=== PATIENT | male | born 1950 | race Caucasian/White ===

== ENCOUNTER 2017-12-30 16:12 | Emergency (ER) | payer BC, MEDICARE ==
--- NOTE | 2017-12-30 16:26 | ED ---
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 He passed out in a restaurant hitting his head and R ear on the bench. He was lying on the floor when EMS arrived. He notes LOC,diarrhea and a 0.35 cm laceration with controlled bleeding but denies CP, lightheadedness, fever, chills, N/D, seizures, confusion, and neck pain. He reports a MHx of HTN , HLD, and Colitis but denies a hx of DM, IN, DVT, and CA. - History Of Current Complaint Chief Complaint: EDSyncope Time Seen by Provider: 12/30/17 16:14 Hx Obtained From: Patient, Family/Dredge Or [facility] Hand - Onset/Duration: Sudden Onset Timing: Minutes Context: Witnessed, Loss Of Consciousness Activity At Onset: Other - Standing Associated Head Trauma: Yes Aggravating Factor(s): Nothing Alleviating Factor(s): Nothing Associated Signs And Symptoms: Negative - CP, lightheadedness, fever, chills, N/ D, seizures, confusion, and neck pain, Diarrhea, Other - Positive: LOC - Allergies/Home Medications Allergies/Adverse Reactions: Allergies Allergy/AdvReac Type Severity Reaction Status Date / Time No Known Allergies Allergy Verified 12/30/17 16:34 PMH/Surg Hx/FS Hx/Imm Hx Previously Healthy: No Endocrine/Hematology History: Denies: Hx Diabetes Cardiovascular History: Reports: Hx Hypercholesterolemia, Hx Hypertension Denies: Hx Myocardial Infarction GI History: Reports: Other GI Disorders - Colitis Denies: Hx Diverticulosis - Cancer History Hx Hematologic Symptoms: No Hx Chemotherapy: No Hx Radiation Therapy: No Hx Palliative Cancer Treatment: No - Surgical History Other Surgical History: None reported Infectious Disease History: No Infectious Disease History: Denies: Traveled Outside the [place] in Last 30 Days - Family History Known Family History: Negative: Respiratory Disease, Blood Disorder - Social History Occupation: Employed Full-time Lives: With Family Alcohol Use: Occasionally Substance Use Type: Reports: None Hx Tobacco Use: No Review of Systems Constitutional: Negative - Confusion Negative: Fever, Chills ENT: Negative - Neck pain Positive: Diarrhea. Negative: Vomiting, Nausea Positive: Other - Positive- 0.25 cm laceration on the R ear with controlled bleeding Neurological: Negative - Seizures Positive: Syncope All Other Systems Reviewed And Are Negative: Yes Physical Exam - Summary Physical Exam Summary: GENERAL: Patient is a well developed and nourished M who is lying comfortable in the stretcher. Patient is not in any acute respiratory distress. HEAD AND FACE: Normocephalic EYES: PERRLA, EOMI x 2. EARS: Hearing grossly intact;Tiny abrasion with controlled bleeding seen to the R ear above the tragus MOUTH: Oropharynx within normal limits. NECK: Supple, trachea is midline, no adenopathy, no JVD, no carotid bruit. CHEST: Symmetric, no tenderness at palpation LUNGS: Clear to auscultation bilaterally. No wheezing or crackles. CVS: Regular rate and rhythm, S1 and S2 present, no murmurs or gallops appreciated. ABDOMEN: Soft, non-tender. Bowel sounds are normal. No abdominal abnormal pulsations. EXTREMITIES: Full ROM in all major joints, no edema, no cyanosis or clubbing. NEURO: Alert and oriented x 3. No acute neurological deficits. Speech is normal and follows commands. SKIN: Dry and warm Triage Information Reviewed: Yes Vital Signs On Initial Exam: Initial Vitals Temp Pulse Resp BP Pulse Ox 98.1 F 74 17 139/87 100 12/30/17 16:16 12/30/17 16:16 12/30/17 16:16 12/30/17 16:16 12/30/17 16:16 Vital Signs Reviewed: Yes Diagnostics - Vital Signs Vital Signs Temp Pulse Resp BP Pulse Ox 12/30/17 16:16 98.1 F 74 17 139/87 100 - Laboratory Result Diagrams: 12/30/17 16:49 12/30/17 16:49 Lab Statement: Any lab studies that have been ordered have been reviewed, and results considered in the medical decision making process. - Radiology CXR Radiology Interpretation Completed By: Radiologist - IMPRESSION: 1. No radiographic evidence for acute cardiopulmonary abnormality on this portable chest x-ray. 2. Questionable free air beneath the right hemidiaphragm. 3. Dilated loops of small bowel with possible wall thickening identified at the left of midline upper abdomen. The ED physician has reviewed this radiology report. - CT Chest/Abd /Pel CT CT Interpretation Completed By: Radiologist - IMPRESSION: 1. T6 vertebral body lesion of uncertain significance. Consider further imaging with MR if no prior studies are available to confirm long-term stability. 2. No acute findings in the chest. Specifically, no pulmonary embolism. The ED physician has reviewed this radiatiology report. 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 He passed out in a restaurant hitting his head and R ear on the bench. He was lying on the floor when EMS arrived. He notes LOC, diarrhea and a 0.35 cm laceration with controlled bleeding but denies CP, lightheadedness, fever, chills, N/D, seizures, confusion, and neck pain. He reports a MHx of HTN, HLD, and Colitis but denies a hx of DM, IN, DVT, and CA. A physical exam reveals a small laceration with controlled bleeding on the R ear near the tragus. A CXR reveals free air beneath the right hemidiaphragm and dilated loops of small bowel with possible wall thickening in the L midline upper abdomen. A Chest/Abd/ Pel CT and EKG are both unremarkable. In the ED course, pt was given Iohexol and N.s 0.9% which improved the symptoms. The pt wanted to leave AMA but agreed to wait for the radiology results. I diagnosed the pt with syncope and anemia. Allergies noted. 19:00- The pt was signed out to Dr Ty Sterling MD. He is awaiting the Chest/Abd/Pel CT results. - Diagnoses Provider Diagnoses: Syncope, Anemia Discharge - Sign-Out/Discharge Documenting (check all that apply): Sign-Out Patient Signing out patient TO: Ty Sterling - Discharge Plan Referrals: [facility] [Outside] - Attestation Statements Document Initiated by Scribe: Yes Documenting Scribe: Magdalene Regalado Provider For Whom Scribe is Documenting (Include Credential): Dr. Becki Bella. Scribe Attestation: Magdalene Philip , scribed for Dr. Becki Simental on 12/30/17 at 1939.
[2017-12-30 16:57] LABS: ABS Basophils 0 10^3/ul (0-0.2); ABS Eosinophils 0 10^3/ul (0-0.6); ABS Lymphocytes 0.7 10^3/ul (1.0-4.8); ABS Monocytes 0.6 10^3/ul (0-0.8); ABS Neutrophils 7.3 10^3/ul (1.5-7.7); ABS Nucleated RBC 0 10^3/ul; Eosinophil % 0 % (0-6); Hematocrit 28 % (42-52); Hemoglobin 9.5 g/dl (14.0-18.0); Lymphocyte % 8.4 % (25-47); Mean Corpuscular HGB Conc 34 g/dl (31-36); Mean Corpuscular Hemoglobin 35 pg (27-31); Mean Corpuscular Volume 104 fL (80-94); Mean Platelet Volume 6.6 um3 (7.4-10.4); Nucleated Red Blood Cells % 0; Platelet Count 186 10^3/ul (150-450); Red Blood Count 2.69 10^6/ul (4.00-5.40); Red Cell Distribution Width 13 % (10.5-15); White Blood Count 8.6 10^3/ul (3.5-10.8)
--- NOTE | 2017-12-30 17:03 | RAD ---
INDICATION: Syncope COMPARISON: None. TECHNIQUE: Single AP portable view of the chest was obtained. FINDINGS: Image quality is compromised due to the relative inferiority of a portable chest x-ray. The heart and mediastinum exhibit normal size and contour. The lungs are grossly clear. There is no evidence of a large pleural effusion. There appears to be air beneath the right hemidiaphragm that is questionably located within bowel. At the upper midline abdomen there are air-filled loops of bowel measuring up to 3.3 cm in diameter that appear to exhibit mild circumferential wall thickening. Visualized bones are normal for the patient's age. IMPRESSION: 1. No radiographic evidence for acute cardiopulmonary abnormality on this portable chest x-ray. 2. Questionable free air beneath the right hemidiaphragm. 3. Dilated loops of small bowel with possible wall thickening identified at the left of midline upper abdomen.
[2017-12-30 17:07] LABS: INR 0.81 (0.77-1.02)
[2017-12-30 17:17] LABS: EGFR Non-African American 67.1 (>60)
[2017-12-30] MEDS ORDERED: NS 0.9% 1000 ML* 1,000 ML IV ONE (17:28)
[2017-12-30] MEDS ORDERED: Iohexol 350* (CONTRAST) 500 ML MDV IV ONE (17:34)
--- NOTE | 2017-12-30 19:19 | RAD ---
EXAM: CT Angiography Chest With Intravenous Contrast CLINICAL HISTORY: 67 years old, male; Signs and symptoms; Other: Chest: Eval for pe per md; A/p: Questionable free air seen on xray; Additional info: Eval for pe; Questionable free air seen on x ray TECHNIQUE: Axial computed tomographic angiography images of the chest with intravenous contrast using pulmonary embolism protocol. All CT scans at this facility use at least one of these dose optimization techniques: automated exposure control; mA and/or kV adjustment per patient size (includes targeted exams where dose is matched to clinical indication); or iterative reconstruction. MIP reconstructed images were created and reviewed. Coronal and sagittal reformatted images were created and reviewed. CONTRAST: 97 mL of [id number] administered intravenously. COMPARISON: No relevant prior studies available. FINDINGS: Pulmonary arteries: Unremarkable. No pulmonary embolism. Aorta: Atherosclerotic calcification. Lungs: Unremarkable. No mass. No consolidation. Pleural space: Unremarkable. No significant effusion. No pneumothorax. Heart: Unremarkable. No cardiomegaly. No significant pericardial effusion. No evidence of RV dysfunction. Bones/joints: Small low-attenuation of the T6 vertebral body of uncertain significance. No acute fracture. No dislocation. Soft tissues: Unremarkable. Lymph nodes: Unremarkable. No enlarged lymph nodes. IMPRESSION: 1. T6 vertebral body lesion of uncertain significance. Consider further imaging with MR if no prior studies are available to confirm long-term stability. 2. No acute findings in the chest. Specifically, no pulmonary embolism. EXAM: CT Abdomen and Pelvis With Intravenous Contrast CLINICAL HISTORY: 67 years old, male; Signs and symptoms; Other: Chest: Eval for pe per md; A/p: Questionable free air seen on xray; Additional info: Eval for pe; Questionable free air seen on x ray TECHNIQUE: Axial computed tomography images of the abdomen and pelvis with intravenous contrast. All CT scans at this facility use at least one of these dose optimization techniques: automated exposure control; mA and/or kV adjustment per patient size (includes targeted exams where dose is matched to clinical indication); or iterative reconstruction. MIP reconstructed images were created and reviewed. Coronal and sagittal reformatted images were created and reviewed. CONTRAST: 97 mL of [id number] administered intravenously. 97 mL of [id number] administered intravenously. COMPARISON: No relevant prior studies available. FINDINGS: Lung bases: Unremarkable. No mass. No consolidation. ABDOMEN: Liver: Unremarkable. No mass. Gallbladder and bile ducts: Unremarkable. No calcified stones. No ductal dilation. Pancreas: Unremarkable. No mass. No ductal dilation. Spleen: Unremarkable. No splenomegaly. Adrenals: Unremarkable. No mass. Kidneys and ureters: Bilateral perinephric fat stranding, a nonspecific finding which can be seen with pyelonephritis or recently passed stone. Stomach and bowel: Colonic diverticula with mild mesenteric fat stranding adjacent to the mid descending colon. Multiple loops of prominent small bowel in the anterior abdomen measuring approximately 28 mm in greatest dimension. Distal small bowel is decompressed. No obstruction. No mucosal thickening. PELVIS: Appendix: No findings to suggest acute appendicitis. Bladder: Unremarkable. No mass. Reproductive: Unremarkable as visualized. ABDOMEN and PELVIS: Intraperitoneal space: Unremarkable. No free air. No significant fluid collection. Bones/joints: Degenerative changes of the lumbar spine. No acute fracture. No dislocation. Soft tissues: Unremarkable. Vasculature: Atherosclerotic calcification. No abdominal aortic aneurysm. Lymph nodes: Unremarkable. No enlarged lymph nodes. IMPRESSION: 1. Possible early or incomplete small bowel obstruction. Recommend followup radiographs to confirm. 2. Left-sided diverticulitis without perforation or abscess.
--- NOTE | 2017-12-30 19:58 | RAD ---
EXAM: CT Head Without Intravenous Contrast CLINICAL HISTORY: 67 years old, male; Signs and symptoms; Syncope and collapse; Additional info: Syncope with fall TECHNIQUE: Axial computed tomography images of the head/brain without intravenous contrast. All CT scans at this facility use at least one of these dose optimization techniques: automated exposure control; mA and/or kV adjustment per patient size (includes targeted exams where dose is matched to clinical indication); or iterative reconstruction. Coronal and sagittal reformatted images were created and reviewed. COMPARISON: No relevant prior studies available. FINDINGS: Brain: Unremarkable. No hemorrhage. No significant white matter disease. No edema. Ventricles: Unremarkable. No ventriculomegaly. Bones/joints: Unremarkable. No acute fracture. Soft tissues: Extracranial soft tissue swelling overlying the right parietal region. Vasculature: Residual vascular contrast is present from the chest and abdomen CT performed earlier. Sinuses: Unremarkable as visualized. No acute sinusitis. Mastoid air cells: Unremarkable as visualized. No mastoid effusion. IMPRESSION: 1. No acute intracranial abnormality.
--- NOTE | 2017-12-30 20:16 | ED ---
Progress - Progress Note Progress Note: Patient was signed out to Dr. Ty Sterling via Dr. Bella, pending disposition on 12/30/2017 at 1900. Re-Evaluation - Re-Evaluation First Eval Re-Evaluation Time: 20:10 Comment: Discussed with patient. Course/Dx - Course Course Of Treatment: A 67 y/o male HARRY presents to ED c/o syncope. CTA Chest/ Abdomen/Pelvis as per radiology did reveal a bowel obstruction and diverticulitis. Patient does not have any symptoms or signs of bowel obstruction. Patient does have chronic diarrhea and chronic colitis which is his baseline. Regarding syncope, patient was advised by Dr. Sterlnig and Dr. Bella to stay in hospital. However, patient refused to stay. Patient advised that he needs to stay to make sure of malignant arrhythmia for syncope. Patient understands and will still sign out AMA. It was explained to the patient the risks of signing out AMA such as arrhythmia, heart attack, permanent disability and . Patient understands and will sign out AMA. Patient will be signed out AMA with a diagnosis of syncope. Patient is to follow up with PCP tomorrow. Patient is agreeable with this plan. - Diagnoses Provider Diagnoses: Syncope Discharge - Sign-Out/Discharge Documenting (check all that apply): Patient Departure - DISCHARGE AMA - Discharge Plan Condition: Stable Disposition: AGAINST MEDICAL ADVICE Patient Education Materials: Syncope (ED), Bowel Obstruction (ED) Referrals: [facility] [Outside] - 1 Day Additional Instructions: FOLLOW UP WITH PRIMARY CARE OR [facility] TOMORROW. RETURN TO ED FOR ANY NEW OR WORSENING SYMPTOMS. - Attestation Statements Document Initiated by Scribe: Yes Documenting Scribe: Butch Meza Provider For Whom Aileenibe is Documenting (Include Credential): Ty Sterling Scribe Attestation: Butch Philip, markosed for Ty Sterling on 12/30/17 at 2016.
[2017-12-30 20:38] VITALS: BP 142/85
== END 2017-12-30 20:37 | disposition left against medical advice (07) ==
LOC: ED 16:12
DX: R55 Syncope and collapse (principal); D64.9 Anemia, unspecified; S01.311A Laceration without foreign body of right ear, initial encounter; W18.09XA Striking against other object with subsequent fall, initial encounter; Y93.9 Activity, unspecified; Y92.511 Restaurant or cafe as the place of occurrence of the external cause; R19.7 Diarrhea, unspecified
CPT/HCPCS: 36415; 70450; 71045; 71275; 74177; 80053; 82272; 83605; 83735; 83880; 84484; 85025; 85379; 85610; 85730; 93005; 96360; 96361; 99283; Q9967

== ENCOUNTER 2022-10-05 21:32 | Inpatient (IN) ==
[2022-10-05] MEDS ORDERED: Morphine 4 MG/ML VIAL (1 ml) IV ONE (21:49)
[2022-10-05 22:04] LABS: Hematocrit 36.5 % (38-53); Hemoglobin 12.4 g/dL (13.2-16.3); Mean Corpuscular Hemoglobin 37.5 pg (27-33); Mean Corpuscular Volume 110.5 fL (80-97); Platelet Count 154 10^3/uL (150-450); Red Blood Count 3.31 10^6/uL (4.06-5.63); Red Cell Distribution Width 14.1 % (12-17); White Blood Count 11.1 10^3/uL (3.6-10.2)
[2022-10-05 22:17] LABS: Albumin 4.2 g/dL (3.2-5.2); Albumin/Globulin Ratio 1.3 (1-3); Calcium 9.2 mg/dL (8.6-10.3); Creatinine, Serum 1.69 mg/dL (0.67-1.17); Globulin 3.3 g/dL (2-4); Potassium 4.1 mmol/L (3.5-5.0); Total Bilirubin 0.6 mg/dL (0.2-1.0); Total Protein 7.5 g/dL (6.4-8.9); eGFR CKD-EPI 42.3 (>60)
[2022-10-05] MEDS ORDERED: Ondansetron 4 mg VIAL 2 MG/ML 2 ml VIAL IV ONE (22:17)
[2022-10-05 22:38] LABS: ABS Monocytes 0.8 10^3/uL (0.0-1.1); ABS Neutrophils 9.3 10^3/uL (1.5-7.6); ABS Nucleated RBC 0.01 10^3/ul; Eosinophil % 0.1 %; Lymphocyte % 8.6 %; Nucleated Red Blood Cells % 0.1 /100 WBC (0.0-0.4)
[2022-10-05] MEDS ORDERED: Lactated Ringers 1000 ml BAG 1,000 ML IV ONE (22:52)
[2022-10-05] MEDS ORDERED: Senna TAB 8.6 mg TAB PO PRN (23:55)
[2022-10-05] MEDS ORDERED: Polyethylene Glycol 3350 17 GM PACKET PO PRN (23:55)
[2022-10-06] MEDS ORDERED: Morphine 2 MG/ML SYRINGE IV PRN (00:05)
[2022-10-06] MEDS: Enoxaparin 40 MG/0.4 ML SYR SUBCUT SCH ×2 (00:53→21:40)
[2022-10-06] MEDS ORDERED: Lactated Ringers 1000 ml BAG 1,000 ML IV SCH (01:00)
[2022-10-06 01:09] LABS: INR 0.96 (0.88-1.18)
[2022-10-06] MEDS: Lactated Ringers 1000 ml BAG 1,000 ML IV SCH ×2 (04:41→13:14)
[2022-10-06 07:30] LABS: ABS Lymphocytes 0.7 10^3/uL (1.0-4.8); ABS Monocytes 1.1 10^3/uL (0.0-1.1); ABS Neutrophils 8.1 10^3/uL (1.5-7.6); Hematocrit 33.6 % (38-53); Hemoglobin 11.5 g/dL (13.2-16.3); Lymphocyte % 7.5 %; Mean Corpuscular Hemoglobin 36.9 pg (27-33); Mean Corpuscular Hgb Conc 34.2 g/dL (31-36); Mean Corpuscular Volume 107.7 fL (80-97); Mean Platelet Volume 6.6 fL (7.5-11.2); Platelet Count 230 10^3/uL (150-450); Red Blood Count 3.12 10^6/uL (4.06-5.63); Red Cell Distribution Width 13.9 % (12-17)
[2022-10-06 07:40] LABS: Albumin/Globulin Ratio 1.3 (1-3); Creatinine, Serum 1.64 mg/dL (0.67-1.17); Globulin 3.2 g/dL (2-4); Magnesium 1.5 mg/dL (1.9-2.7); Potassium 4.4 mmol/L (3.5-5.0); Total Bilirubin 0.8 mg/dL (0.2-1.0); Total Protein 7.2 g/dL (6.4-8.9); eGFR CKD-EPI 43.9 (>60)
[2022-10-06] MEDS: Thiamine 100 MG/ML 2 ml VIAL 100 MG in NS 0.9% 50 ML 50 ML IV SCH (08:41)
[2022-10-06] MEDS ORDERED: Magnesium Sulfate 2 gm BAG 2 GM/50 ML BAG IVPB ONE (13:21)
[2022-10-06 14:10] LABS: Folate 4.43 ng/mL (5.90-24.80)
[2022-10-06] MEDS ORDERED: ceFAZolin 2 GM in NS PREMIX 2 GM/100 ML BAG IVPB ONE (14:42)
[2022-10-06] MEDS ORDERED: Naloxone 0.4 mg VIAL 0.4 mg/ml 1 ml VIAL IV PRN (14:53)
[2022-10-06] MEDS ORDERED: Ondansetron 4 mg VIAL 2 MG/ML 2 ml VIAL IV PRN (14:53)
[2022-10-06] MEDS ORDERED: HYDROmorphone 1 MG/1 ML SYRINGE IV PRN (14:53)
[2022-10-06] MEDS ORDERED: fentaNYL 100 mcg/2 ml 50 MCG/ML VIAL IV PRN (14:53)
[2022-10-06] MEDS ORDERED: Acetaminophen IV 1 GM/100ML 1,000 MG/100 ML BAG IV ONE (14:53)
[2022-10-06] MEDS ORDERED: fentaNYL 100 mcg/2 ml 50 MCG/ML VIAL ONE (15:29)
[2022-10-06] MEDS ORDERED: Midazolam 2 mg/2 ml VIAL 1 mg/ml 2 ml VIAL (2 mg) ONE (15:29)
[2022-10-06] MEDS ORDERED: Bupivacaine 0.25% EPI 200,000 30 ML SDV ONE (17:14)
[2022-10-06] MEDS: Ondansetron 4 mg VIAL 2 MG/ML 2 ml VIAL IV PRN (21:41)
[2022-10-06] MEDS ORDERED: Lactated Ringers 1000 ml BAG 1,000 ML IV ONE (22:22)
[2022-10-06] MEDS ORDERED: Lorazepam PYXIS KEY PRN (22:23)
[2022-10-07] MEDS: LORazepam 2 mg VIAL 1 ml IV PUSH PRN ×5 (00:02→17:22)
[2022-10-07] MEDS: ceFAZolin 1 GM X 3 DOSES POST-OP Q8H (AddVan) IVPB SCH ×3 (02:42→18:15)
[2022-10-07] MEDS: Ondansetron 4 mg VIAL 2 MG/ML 2 ml VIAL IV PRN (06:01)
[2022-10-07 06:48] LABS: ABS Lymphocytes 0.7 10^3/uL (1.0-4.8); ABS Monocytes 0.6 10^3/uL (0.0-1.1); ABS Neutrophils 5.1 10^3/uL (1.5-7.6); Eosinophil % 0.3 %; Hematocrit 24.5 % (38-53); Hemoglobin 8.6 g/dL (13.2-16.3); Lymphocyte % 11.3 %; Mean Corpuscular Hemoglobin 38.1 pg (27-33); Mean Corpuscular Hgb Conc 35.2 g/dL (31-36); Mean Corpuscular Volume 108.3 fL (80-97); Platelet Count 150 10^3/uL (150-450); Red Blood Count 2.26 10^6/uL (4.06-5.63); Red Cell Distribution Width 13.8 % (12-17); White Blood Count 6.5 10^3/uL (3.6-10.2)
[2022-10-07 07:02] LABS: Calcium 8.2 mg/dL (8.6-10.3); Creatinine, Serum 1.7 mg/dL (0.67-1.17); Potassium 4.2 mmol/L (3.5-5.0)
[2022-10-07] MEDS ORDERED: Cyanocobalamin INJ 1,000 MCG/ML VIAL 1 ML VIAL IM ONE (07:57)
[2022-10-07] MEDS: Thiamine 100 MG/ML 2 ml VIAL 100 MG in NS 0.9% 50 ML 50 ML IV SCH (08:53)
[2022-10-07] MEDS: Enoxaparin 40 MG/0.4 ML SYR SUBCUT SCH (21:35)
[2022-10-08] MEDS ORDERED: hydrALAZINE 20 mg/ml 1 ML Vial IV IV SLOW PU ONE (01:25)
[2022-10-08 06:18] LABS: ABS Lymphocytes 0.8 10^3/uL (1.0-4.8); ABS Monocytes 0.8 10^3/uL (0.0-1.1); ABS Neutrophils 6.8 10^3/uL (1.5-7.6); Hematocrit 23.8 % (38-53); Hemoglobin 8.4 g/dL (13.2-16.3); Lymphocyte % 9.3 %; Mean Corpuscular Hemoglobin 37.6 pg (27-33); Mean Corpuscular Hgb Conc 35.3 g/dL (31-36); Mean Corpuscular Volume 106.4 fL (80-97); Mean Platelet Volume 7.5 fL (7.5-11.2); Platelet Count 143 10^3/uL (150-450); Red Blood Count 2.24 10^6/uL (4.06-5.63); Red Cell Distribution Width 13.4 % (12-17); White Blood Count 8.3 10^3/uL (3.6-10.2)
[2022-10-08 06:35] LABS: Calcium 8.7 mg/dL (8.6-10.3); Creatinine, Serum 1.78 mg/dL (0.67-1.17); Potassium 3.8 mmol/L (3.5-5.0); eGFR CKD-EPI 39.8 (>60)
[2022-10-08] MEDS ORDERED: Magnesium Hydroxide LIQ 30 ML UDC PO PRN (09:30)
[2022-10-08] MEDS: Thiamine 100 MG/ML 2 ml VIAL 100 MG in NS 0.9% 50 ML 50 ML IV SCH (12:23)
[2022-10-08] MEDS: Lactated Ringers 1000 ml BAG 1,000 ML IV SCH ×2 (16:10→22:43)
[2022-10-08] MEDS: Enoxaparin 40 MG/0.4 ML SYR SUBCUT SCH (20:40)
[2022-10-09] MEDS: Lactated Ringers 1000 ml BAG 1,000 ML IV SCH (05:45)
[2022-10-09 05:56] LABS: ABS Lymphocytes 0.7 10^3/uL (1.0-4.8); ABS Monocytes 1.1 10^3/uL (0.0-1.1); ABS Neutrophils 6.9 10^3/uL (1.5-7.6); Eosinophil % 0.3 %; Hemoglobin 7.5 g/dL (13.2-16.3); Lymphocyte % 8.1 %; Mean Corpuscular Hemoglobin 38.4 pg (27-33); Mean Corpuscular Hgb Conc 35.6 g/dL (31-36); Mean Corpuscular Volume 107.9 fL (80-97); Mean Platelet Volume 6.9 fL (7.5-11.2); Platelet Count 163 10^3/uL (150-450); Red Blood Count 1.95 10^6/uL (4.06-5.63); Red Cell Distribution Width 13.7 % (12-17); White Blood Count 8.7 10^3/uL (3.6-10.2)
[2022-10-09 06:33] LABS: Calcium 8.1 mg/dL (8.6-10.3); Creatinine, Serum 1.63 mg/dL (0.67-1.17); Magnesium 1.7 mg/dL (1.9-2.7); Potassium 3.1 mmol/L (3.5-5.0); eGFR CKD-EPI 44.2 (>60)
[2022-10-09] MEDS ORDERED: Magnesium Sulf 4 GM/100 ML IV 4,000 MG/100 ML BAG IVPB ONE (07:23)
[2022-10-09] MEDS: Potassium Chlor 20 meq TAB.ER PO SCH ×2 (09:06→11:32)
[2022-10-09 09:10] LABS: Corrected Retic Count 1.1 % (0.5-1.5); Hematocrit for Retic CNT 20.7 % (38-53); Immature Retic Fraction 0.36; RBC Retic Count 1.93 10^6/ul (4.06-5.63)
[2022-10-09] MEDS ORDERED: Iodixanol (CONTRAST) 320 MG/ML 100 ML SDV IV ONE (14:13)
[2022-10-09] MEDS ORDERED: fentaNYL 100 mcg/2 ml 50 MCG/ML VIAL ONE (15:34)
[2022-10-09] MEDS ORDERED: Midazolam 10 mg/10 ml VIAL 1 mg/ml 10 ml VIAL (10 mg) ONE (15:34)
[2022-10-09] MEDS: Thiamine 100 MG/ML 2 ml VIAL 100 MG in NS 0.9% 50 ML 50 ML IV SCH ×2 (15:59→18:23)
[2022-10-09] MEDS ORDERED: Magnesium Sulfate IV 3 GM in NS 0.9% 100 ml BAG 100 ML IVPB ONE (18:08)
[2022-10-09 18:55] LABS: Hematocrit 20.7 % (38-53); Hemoglobin 7.4 g/dL (13.2-16.3)
[2022-10-09 19:22] LABS: % Iron Saturation 13 % (15-55); .Transferrin 109 mg/dL (203-362); Iron < 20 ug/dL (50-212); Total Iron Binding Capacity 153 mcg/dL (250-450); Unsaturated Iron Binding 133 ug/dL
[2022-10-09 19:42] LABS: Ferritin 309.3 ng/mL (24-336)
[2022-10-09 19:46] LABS: Folate 10.81 ng/mL (5.90-24.80)
[2022-10-09 19:48] LABS: Vitamin B12 1025 pg/mL (180-914)
[2022-10-09] MEDS: Enoxaparin 40 MG/0.4 ML SYR SUBCUT SCH (21:38)
[2022-10-09] MEDS: KCL 20 MEQ/100 ML IVPREMIX 20 MEQ/100 ML BAG IV SCH (22:35)
[2022-10-10] MEDS: KCL 20 MEQ/100 ML IVPREMIX 20 MEQ/100 ML BAG IV SCH (01:10)
[2022-10-10 06:38] LABS: ABS Eosinophils 0.1 10^3/uL (0.0-0.5); ABS Lymphocytes 0.8 10^3/uL (1.0-4.8); ABS Monocytes 1.3 10^3/uL (0.0-1.1); ABS Neutrophils 6.8 10^3/uL (1.5-7.6); Eosinophil % 1.4 %; Hematocrit 20.1 % (38-53); Hemoglobin 7.1 g/dL (13.2-16.3); Lymphocyte % 8.7 %; Mean Corpuscular Hemoglobin 38.3 pg (27-33); Mean Corpuscular Hgb Conc 35.5 g/dL (31-36); Mean Corpuscular Volume 107.9 fL (80-97); Mean Platelet Volume 6.9 fL (7.5-11.2); Platelet Count 198 10^3/uL (150-450); Red Blood Count 1.86 10^6/uL (4.06-5.63); Red Cell Distribution Width 13.6 % (12-17)
[2022-10-10 06:57] LABS: Calcium 7.9 mg/dL (8.6-10.3); Creatinine, Serum 1.55 mg/dL (0.67-1.17); Potassium 3.7 mmol/L (3.5-5.0)
[2022-10-10] MEDS ORDERED: Folic Acid IV 1 MG in NS 0.9% 50 ML 50 ML IV ONE (07:16)
[2022-10-10] MEDS ORDERED: Potassium Phosphate IV 15 MMOL in NS 0.9% 250 ml 250 ML IVPB ONE (07:46)
[2022-10-10] MEDS ORDERED: Metoprolol Tartrate 5 mg VIAL 5 ml VIAL (1 mg/ml) IV SCH (08:00)
[2022-10-10] MEDS: Pantoprazole VIAL 40 MG VIAL IV SCH (08:36)
[2022-10-10] MEDS ORDERED: Neostigmine Methylsulfate 3 MG/3 ML SYRINGE IV ONE (13:05)
[2022-10-10] MEDS ORDERED: Atropine 0.1 MG/ML 10 ml SYR (1 mg) IV PUSH PRN (13:39)
[2022-10-10] MEDS: Lactated Ringers 1000 ml BAG 1,000 ML IV SCH (13:57)
[2022-10-10] MEDS: Thiamine 100 MG/ML 2 ml VIAL 100 MG in NS 0.9% 50 ML 50 ML IV SCH (14:54)
[2022-10-10] MEDS ORDERED: hydrALAZINE 20 mg/ml 1 ML Vial IV IV SLOW PU PRN (16:12)
[2022-10-10] MEDS ORDERED: Lactated Ringers 1000 ml BAG 1,000 ML IV SCH (17:00)
[2022-10-10] MEDS ORDERED: Metoprolol Tartrate 5 mg VIAL 5 ml VIAL (1 mg/ml) IV PRN (17:36)
[2022-10-10] MEDS ORDERED: Furosemide 20 mg/2 ml IV VIAL IV ONE (17:37)
[2022-10-10] MEDS: Acetaminophen IV 1 GM/100ML 1,000 MG/100 ML BAG IV PRN (18:02)
[2022-10-10] MEDS: Enoxaparin 40 MG/0.4 ML SYR SUBCUT SCH (20:09)
[2022-10-10] MEDS ORDERED: Ferric Gluconate IV 125 MG in NS 0.9% 100 ml BAG 100 ML IVPB ONE (21:00)
[2022-10-11] MEDS: Lactated Ringers 1000 ml BAG 1,000 ML IV SCH (03:10)
[2022-10-11 04:21] LABS: Hematocrit 21.4 % (38-53); Hemoglobin 7.4 g/dL (13.2-16.3); Mean Corpuscular Hemoglobin 37.9 pg (27-33); Mean Corpuscular Hgb Conc 34.8 g/dL (31-36); Mean Corpuscular Volume 108.8 fL (80-97); Mean Platelet Volume 6.7 fL (7.5-11.2); Platelet Count 225 10^3/uL (150-450); Red Blood Count 1.97 10^6/uL (4.06-5.63); Red Cell Distribution Width 13.5 % (12-17)
[2022-10-11 04:35] LABS: Creatinine, Serum 1.54 mg/dL (0.67-1.17); Magnesium 2.4 mg/dL (1.9-2.7); Phosphorus 4.1 mg/dL (2.5-5.0); Potassium 3.4 mmol/L (3.5-5.0); eGFR CKD-EPI 47.3 (>60)
[2022-10-11] MEDS: Pantoprazole VIAL 40 MG VIAL IV SCH (07:19)
[2022-10-11] MEDS: KCL 20 MEQ/100 ML IVPREMIX 20 MEQ/100 ML BAG IV SCH ×2 (07:20→09:40)
[2022-10-11] MEDS ORDERED: KCL 20 MEQ/100 ML IVPREMIX 20 MEQ/100 ML BAG IV ONE ×3 (08:05→20:30)
[2022-10-11] MEDS ORDERED: Neostigmine Methylsulfate 3 MG/3 ML SYRINGE IV ONE (08:41)
[2022-10-11] MEDS: Neostigmine Methylsulfate 3 MG/3 ML SYRINGE IV ONE ×2 (10:30→11:16)
[2022-10-11] MEDS: Acetaminophen IV 1 GM/100ML 1,000 MG/100 ML BAG IV PRN (11:50)
[2022-10-11] MEDS ORDERED: NEOSTIGMINE METHYLSULFATE IV ONE ×2 (14:30→22:30)
[2022-10-11] MEDS ORDERED: NS 0.9% IV ONE ×2 (14:30→22:30)
[2022-10-11] MEDS: Thiamine 100 MG/ML 2 ml VIAL 100 MG in NS 0.9% 50 ML 50 ML IV SCH (15:05)
[2022-10-11] MEDS ORDERED: D5W NS 0.9% 20Meq KCL 1000 ml 1,000 ML IV SCH (20:00)
[2022-10-12] MEDS: Enoxaparin 40 MG/0.4 ML SYR SUBCUT SCH ×2 (00:38→22:01)
[2022-10-12 05:27] LABS: Hematocrit 19.5 % (38-53); Hemoglobin 6.8 g/dL (13.2-16.3); Mean Corpuscular Hgb Conc 34.9 g/dL (31-36); Mean Corpuscular Volume 108.8 fL (80-97); Mean Platelet Volume 6.8 fL (7.5-11.2); Platelet Count 263 10^3/uL (150-450); Red Cell Distribution Width 13.6 % (12-17)
[2022-10-12 05:41] LABS: Calcium 7.9 mg/dL (8.6-10.3); Creatinine, Serum 1.52 mg/dL (0.67-1.17); Phosphorus 3.7 mg/dL (2.5-5.0); Potassium 3.2 mmol/L (3.5-5.0); eGFR CKD-EPI 48.1 (>60)
[2022-10-12] MEDS: Acetaminophen IV 1 GM/100ML 1,000 MG/100 ML BAG IV PRN (08:04)
[2022-10-12] MEDS: KCL 20 MEQ/100 ML IVPREMIX 20 MEQ/100 ML BAG IV SCH ×4 (08:05→17:00)
[2022-10-12] MEDS: Pantoprazole VIAL 40 MG VIAL IV SCH (08:06)
[2022-10-12] MEDS: Lactated Ringers 1000 ml BAG 1,000 ML IV SCH (14:15)
[2022-10-12] MEDS: Thiamine 100 MG/ML 2 ml VIAL 100 MG in NS 0.9% 50 ML 50 ML IV SCH (14:54)
[2022-10-12] MEDS: hydrALAZINE 20 mg/ml 1 ML Vial IV IV SLOW PU PRN (15:42)
[2022-10-12 16:29] LABS: Hematocrit 26.6 % (38-53); Hemoglobin 9.2 g/dL (13.2-16.3)
[2022-10-12 16:56] LABS: Calcium 8.1 mg/dL (8.6-10.3); Creatinine, Serum 1.47 mg/dL (0.67-1.17); Potassium 4.2 mmol/L (3.5-5.0); eGFR CKD-EPI 50.1 (>60)
[2022-10-12] MEDS ORDERED: Senna TAB 8.6 mg TAB PO SCH (21:00)
[2022-10-13] MEDS: Acetaminophen IV 1 GM/100ML 1,000 MG/100 ML BAG IV PRN (01:55)
[2022-10-13] MEDS: Lactated Ringers 1000 ml BAG 1,000 ML IV SCH (03:03)
[2022-10-13 04:35] LABS: Hematocrit 22.6 % (38-53); Hemoglobin 7.9 g/dL (13.2-16.3); Mean Corpuscular Hemoglobin 35.9 pg (27-33); Mean Corpuscular Hgb Conc 34.9 g/dL (31-36); Mean Corpuscular Volume 102.8 fL (80-97); Mean Platelet Volume 6.7 fL (7.5-11.2); Platelet Count 315 10^3/uL (150-450); Red Cell Distribution Width 16.6 % (12-17); White Blood Count 7.5 10^3/uL (3.6-10.2)
[2022-10-13 04:50] LABS: Calcium 7.9 mg/dL (8.6-10.3); Creatinine, Serum 1.49 mg/dL (0.67-1.17); Magnesium 1.8 mg/dL (1.9-2.7); Phosphorus 3.5 mg/dL (2.5-5.0); Potassium 3.4 mmol/L (3.5-5.0); eGFR CKD-EPI 49.2 (>60)
[2022-10-13] MEDS ORDERED: Neostigmine Methylsulfate 3 MG/3 ML SYRINGE IV ONE (10:28)
[2022-10-13] MEDS ORDERED: Magnesium Sulfate 2 gm BAG 2 GM/50 ML BAG IVPB ONE (10:47)
[2022-10-13] MEDS ORDERED: NS 0.9% IV ONE (11:00)
[2022-10-13] MEDS ORDERED: NEOSTIGMINE METHYLSULFATE IV ONE (11:00)
[2022-10-13] MEDS: KCL 20 MEQ/100 ML IVPREMIX 20 MEQ/100 ML BAG IV SCH ×3 (11:36→16:04)
[2022-10-13] MEDS: hydrALAZINE 20 mg/ml 1 ML Vial IV IV SLOW PU PRN (12:38)
[2022-10-13] MEDS: D5LR 1000 ml BAG 1,000 ML IV SCH ×2 (12:38→22:16)
[2022-10-13] MEDS: Thiamine 100 MG/ML 2 ml VIAL 100 MG in NS 0.9% 50 ML 50 ML IV SCH (16:04)
[2022-10-13] MEDS: Enoxaparin 40 MG/0.4 ML SYR SUBCUT SCH (22:16)
[2022-10-14] MEDS: hydrALAZINE 20 mg/ml 1 ML Vial IV IV SLOW PU PRN (05:06)
[2022-10-14 05:18] LABS: ABS Basophils 0.1 10^3/uL (0.0-0.1); ABS Eosinophils 0.3 10^3/uL (0.0-0.5); ABS Lymphocytes 0.8 10^3/uL (1.0-4.8); ABS Monocytes 0.9 10^3/uL (0.0-1.1); ABS Neutrophils 6.4 10^3/uL (1.5-7.6); ABS Nucleated RBC 0.01 10^3/ul; Eosinophil % 3.3 %; Hematocrit 24.7 % (38-53); Hemoglobin 8.8 g/dL (13.2-16.3); Lymphocyte % 9.8 %; Mean Corpuscular Hemoglobin 36.7 pg (27-33); Mean Corpuscular Hgb Conc 35.5 g/dL (31-36); Mean Corpuscular Volume 103.2 fL (80-97); Mean Platelet Volume 6.5 fL (7.5-11.2); Nucleated Red Blood Cells % 0.1 /100 WBC (0.0-0.4); Platelet Count 362 10^3/uL (150-450); Red Blood Count 2.39 10^6/uL (4.06-5.63); Red Cell Distribution Width 16.1 % (12-17); White Blood Count 8.5 10^3/uL (3.6-10.2)
[2022-10-14 05:40] LABS: Calcium 8.1 mg/dL (8.6-10.3); Creatinine, Serum 1.38 mg/dL (0.67-1.17)
[2022-10-14] MEDS: KCL 20 MEQ/100 ML IVPREMIX 20 MEQ/100 ML BAG IV SCH ×5 (07:09→16:17)
[2022-10-14] MEDS ORDERED: cefTRIAXone 1 gm/50 mL D5W 1 GM/50 ML BAG IV SCH (09:30)
[2022-10-14] MEDS: D5LR 1000 ml BAG 1,000 ML IV SCH (10:50)
[2022-10-14] MEDS: cefTRIAXone 1 GM Q24H (ADVAN) IVPB SCH (10:55)
[2022-10-14] MEDS: Polyethylene Glycol 3350 17 GM PACKET PO SCH ×2 (12:15→21:50)
[2022-10-14] MEDS: Thiamine 100 MG/ML 2 ml VIAL 100 MG in NS 0.9% 50 ML 50 ML IV SCH (14:03)
[2022-10-14] MEDS: Enoxaparin 40 MG/0.4 ML SYR SUBCUT SCH (21:50)
[2022-10-15 06:04] LABS: Hemoglobin 9.5 g/dL (13.2-16.3); Mean Corpuscular Hgb Conc 35.2 g/dL (31-36); Mean Corpuscular Volume 104.9 fL (80-97); Mean Platelet Volume 7.1 fL (7.5-11.2); Platelet Count 446 10^3/uL (150-450); Red Blood Count 2.58 10^6/uL (4.06-5.63); White Blood Count 8.6 10^3/uL (3.6-10.2)
[2022-10-15 06:12] LABS: Calcium 8.8 mg/dL (8.6-10.3); Creatinine, Serum 1.49 mg/dL (0.67-1.17); Magnesium 1.8 mg/dL (1.9-2.7); Potassium 3.5 mmol/L (3.5-5.0); eGFR CKD-EPI 49.2 (>60)
[2022-10-15] MEDS ORDERED: Magnesium Sulfate 2 gm BAG 2 GM/50 ML BAG IVPB ONE (07:39)
[2022-10-15] MEDS ORDERED: Potassium Chlor 20 meq TAB.ER PO ONE (07:39)
[2022-10-15] MEDS: Polyethylene Glycol 3350 17 GM PACKET PO SCH ×2 (10:01→23:01)
[2022-10-15] MEDS: cefTRIAXone 1 GM Q24H (ADVAN) IVPB SCH (11:42)
[2022-10-15] MEDS: Thiamine 100 MG/ML 2 ml VIAL 100 MG in NS 0.9% 50 ML 50 ML IV SCH (15:26)
[2022-10-15] MEDS: Enoxaparin 40 MG/0.4 ML SYR SUBCUT SCH (23:01)
[2022-10-16 06:14] LABS: ABS Basophils 0.1 10^3/uL (0.0-0.1); ABS Eosinophils 0.4 10^3/uL (0.0-0.5); ABS Monocytes 0.5 10^3/uL (0.0-1.1); ABS Neutrophils 6.2 10^3/uL (1.5-7.6); Eosinophil % 4.7 %; Hematocrit 27.1 % (38-53); Hemoglobin 9.3 g/dL (13.2-16.3); Lymphocyte % 11.8 %; Mean Corpuscular Hemoglobin 35.7 pg (27-33); Mean Corpuscular Hgb Conc 34.3 g/dL (31-36); Mean Corpuscular Volume 103.9 fL (80-97); Mean Platelet Volume 7.1 fL (7.5-11.2); Platelet Count 422 10^3/uL (150-450); Red Blood Count 2.61 10^6/uL (4.06-5.63); White Blood Count 8.1 10^3/uL (3.6-10.2)
[2022-10-16 06:31] LABS: Calcium 8.6 mg/dL (8.6-10.3); Creatinine, Serum 1.45 mg/dL (0.67-1.17); Magnesium 2.1 mg/dL (1.9-2.7); Potassium 3.8 mmol/L (3.5-5.0); eGFR CKD-EPI 50.9 (>60)
[2022-10-16] MEDS ORDERED: Potassium Chlor 20 meq TAB.ER PO ONE (06:58)
[2022-10-16] MEDS: cefTRIAXone 1 GM Q24H (ADVAN) IVPB SCH (08:20)
[2022-10-16] MEDS: Polyethylene Glycol 3350 17 GM PACKET PO SCH ×2 (08:27→21:07)
[2022-10-16 14:01] LABS: Rapid COVID-19 Molecular Undetected (Undetected)
[2022-10-16] MEDS: Thiamine 100 MG/ML 2 ml VIAL 100 MG in NS 0.9% 50 ML 50 ML IV SCH (16:13)
[2022-10-16] MEDS: Enoxaparin 40 MG/0.4 ML SYR SUBCUT SCH (21:07)
[2022-10-17] MEDS: hydrALAZINE 20 mg/ml 1 ML Vial IV IV SLOW PU PRN ×2 (02:25→19:10)
[2022-10-17 06:09] LABS: ABS Basophils 0.1 10^3/uL (0.0-0.1); ABS Eosinophils 0.2 10^3/uL (0.0-0.5); ABS Lymphocytes 0.8 10^3/uL (1.0-4.8); ABS Neutrophils 14.3 10^3/uL (1.5-7.6); ABS Nucleated RBC 0.01 10^3/ul; Hematocrit 28.4 % (38-53); Hemoglobin 9.8 g/dL (13.2-16.3); Mean Corpuscular Hemoglobin 36.1 pg (27-33); Mean Corpuscular Hgb Conc 34.5 g/dL (31-36); Mean Corpuscular Volume 104.8 fL (80-97); Mean Platelet Volume 7.2 fL (7.5-11.2); Nucleated Red Blood Cells % 0.1 /100 WBC (0.0-0.4); Platelet Count 452 10^3/uL (150-450); Red Blood Count 2.71 10^6/uL (4.06-5.63); Red Cell Distribution Width 15.6 % (12-17); White Blood Count 16.4 10^3/uL (3.6-10.2)
[2022-10-17 06:36] LABS: Creatinine, Serum 1.32 mg/dL (0.67-1.17); Magnesium 1.7 mg/dL (1.9-2.7); Potassium 3.8 mmol/L (3.5-5.0)
[2022-10-17] MEDS ORDERED: Magnesium Sulfate IV 3 GM in NS 0.9% 100 ml BAG 100 ML IVPB ONE (07:42)
[2022-10-17] MEDS: Polyethylene Glycol 3350 17 GM PACKET PO SCH ×2 (07:55→20:11)
[2022-10-17] MEDS: cefTRIAXone 1 GM Q24H (ADVAN) IVPB SCH (07:56)
[2022-10-17 09:18] LABS: ABS Eosinophils 0.1 10^3/uL (0.0-0.5); ABS Lymphocytes 0.7 10^3/uL (1.0-4.8); ABS Monocytes 1.3 10^3/uL (0.0-1.1); ABS Neutrophils 16.9 10^3/uL (1.5-7.6); Eosinophil % 0.3 %; Hematocrit 30.2 % (38-53); Hemoglobin 10.3 g/dL (13.2-16.3); Lymphocyte % 3.9 %; Mean Corpuscular Hemoglobin 35.5 pg (27-33); Mean Corpuscular Hgb Conc 34.2 g/dL (31-36); Mean Corpuscular Volume 103.8 fL (80-97); Mean Platelet Volume 7.2 fL (7.5-11.2); Platelet Count 513 10^3/uL (150-450); Red Blood Count 2.91 10^6/uL (4.06-5.63); Red Cell Distribution Width 15.9 % (12-17)
[2022-10-17 10:25] LABS: C Reactive Protein 51.85 mg/L (<8.01)
[2022-10-17] MEDS: Thiamine 100 MG/ML 2 ml VIAL 100 MG in NS 0.9% 50 ML 50 ML IV SCH (15:13)
[2022-10-17] MEDS: Enoxaparin 40 MG/0.4 ML SYR SUBCUT SCH (20:08)
[2022-10-18 05:55] LABS: Hematocrit 27.7 % (38-53); Hemoglobin 9.4 g/dL (13.2-16.3); Mean Corpuscular Hemoglobin 35.2 pg (27-33); Mean Corpuscular Volume 103.6 fL (80-97); Mean Platelet Volume 7.4 fL (7.5-11.2); Platelet Count 436 10^3/uL (150-450); Red Blood Count 2.67 10^6/uL (4.06-5.63); Red Cell Distribution Width 15.5 % (12-17); White Blood Count 28.5 10^3/uL (3.6-10.2)
[2022-10-18 06:09] LABS: Calcium 8.7 mg/dL (8.6-10.3); Creatinine, Serum 1.5 mg/dL (0.67-1.17); Potassium 3.5 mmol/L (3.5-5.0); eGFR CKD-EPI 48.9 (>60)
[2022-10-18] MEDS ORDERED: Potassium Chlor 20 meq TAB.ER PO ONE (07:35)
[2022-10-18] MEDS: Polyethylene Glycol 3350 17 GM PACKET PO SCH ×2 (08:57→20:30)
[2022-10-18] MEDS: cefTRIAXone 1 gm/50 mL D5W 1 GM/50 ML BAG IV SCH (09:48)
[2022-10-18 11:10] LABS: Urine Appearance Cloudy; Urine Bilirubin Negative (Negative); Urine Blood Negative (Negative); Urine Color Amber; Urine Glucose Negative (Negative); Urine Ketones Negative (Negative); Urine Nitrite Negative (Negative); Urine Protein 1+(30 mg/dL) (Negative); Urine Specific Gravity 1.018 (1.002-1.030); Urine Urobilinogen Negative (Negative)
[2022-10-18 11:26] LABS: Urine Bacteria Absent (Absent); Urine Red Blood Cell 1+(3-5/hpf) (Absent); Urine White Blood Cell Trace(0-5/hpf) (Absent)
[2022-10-18] MEDS ORDERED: metroNIDAZOLE IV 500 MG/100ML 500 MG/100 ML BAG IVPB SCH (14:00)
[2022-10-18] MEDS: Thiamine 100 MG/ML 2 ml VIAL 100 MG in NS 0.9% 50 ML 50 ML IV SCH (17:15)
[2022-10-18] MEDS: Enoxaparin 40 MG/0.4 ML SYR SUBCUT SCH (20:31)
[2022-10-19 06:40] LABS: Hemoglobin 8.2 g/dL (13.2-16.3); Mean Corpuscular Hemoglobin 35.6 pg (27-33); Mean Corpuscular Hgb Conc 34.4 g/dL (31-36); Mean Corpuscular Volume 103.5 fL (80-97); Mean Platelet Volume 7.2 fL (7.5-11.2); Platelet Count 418 10^3/uL (150-450); Red Blood Count 2.32 10^6/uL (4.06-5.63); Red Cell Distribution Width 15.9 % (12-17); White Blood Count 26.3 10^3/uL (3.6-10.2)
[2022-10-19] MEDS: Polyethylene Glycol 3350 17 GM PACKET PO SCH ×2 (07:02→20:40)
[2022-10-19 07:05] LABS: Anisocytosis 1+; Calcium 8.3 mg/dL (8.6-10.3); Creatinine, Serum 1.59 mg/dL (0.67-1.17); Macrocytosis 3+; Magnesium 1.9 mg/dL (1.9-2.7); Polychromasia 1+; Potassium 3.3 mmol/L (3.5-5.0); eGFR CKD-EPI 45.6 (>60)
[2022-10-19 07:06] LABS: ABS Basophils 0.1 10^3/uL (0.0-0.1); ABS Lymphocytes 0.7 10^3/uL (1.0-4.8); ABS Monocytes 1.7 10^3/uL (0.0-1.1); ABS Neutrophils 23.9 10^3/uL (1.5-7.6); ABS Nucleated RBC 0.02 10^3/ul; Eosinophil % 0.1 %; Lymphocyte % 2.6 %; Nucleated Red Blood Cells % 0.1 /100 WBC (0.0-0.4)
[2022-10-19] MEDS ORDERED: Magnesium Sulfate IV 1GM/100ML 1 GM/100 ML BAG IV ONE (07:16)
[2022-10-19] MEDS ORDERED: Potassium Chlor 20 meq TAB.ER PO ONE (07:16)
[2022-10-19] MEDS: hydrALAZINE 20 mg/ml 1 ML Vial IV IV SLOW PU PRN (08:52)
[2022-10-19] MEDS: cefTRIAXone 1 gm/50 mL D5W 1 GM/50 ML BAG IV SCH (08:53)
[2022-10-19] MEDS: Thiamine 100 MG/ML 2 ml VIAL 100 MG in NS 0.9% 50 ML 50 ML IV SCH (14:09)
[2022-10-19 15:37] LABS: Albumin 2.6 g/dL (3.2-5.2); Albumin/Globulin Ratio 0.8 (1-3); Direct Bilirubin 0.1 mg/dL (0.03-0.18); Globulin 3.4 g/dL (2-4); Indirect Bilirubin 0.4 mg/dL (0.3-1.0); Total Bilirubin 0.5 mg/dL (0.2-1.0)
[2022-10-19] MEDS: metroNIDAZOLE IV 500 MG/100ML 500 MG/100 ML BAG IVPB SCH ×2 (16:07→20:45)
[2022-10-19] MEDS: Enoxaparin 40 MG/0.4 ML SYR SUBCUT SCH (20:47)
[2022-10-20] MEDS: metroNIDAZOLE IV 500 MG/100ML 500 MG/100 ML BAG IVPB SCH ×3 (05:11→21:20)
[2022-10-20 06:26] LABS: Hematocrit 21.9 % (38-53); Hemoglobin 7.6 g/dL (13.2-16.3); Mean Corpuscular Hgb Conc 34.8 g/dL (31-36); Mean Corpuscular Volume 103.3 fL (80-97); Mean Platelet Volume 7.3 fL (7.5-11.2); Platelet Count 382 10^3/uL (150-450); Red Blood Count 2.12 10^6/uL (4.06-5.63); Red Cell Distribution Width 15.5 % (12-17); White Blood Count 17.7 10^3/uL (3.6-10.2)
[2022-10-20 06:29] LABS: ABS Eosinophils 0.1 10^3/uL (0.0-0.5); ABS Lymphocytes 0.7 10^3/uL (1.0-4.8); ABS Monocytes 1.6 10^3/uL (0.0-1.1); ABS Neutrophils 15.3 10^3/uL (1.5-7.6); ABS Nucleated RBC 0.01 10^3/ul; Eosinophil % 0.4 %; Lymphocyte % 3.8 %
[2022-10-20 06:42] LABS: Calcium 7.9 mg/dL (8.6-10.3)
[2022-10-20 06:47] LABS: Creatinine, Serum 1.73 mg/dL (0.67-1.17); eGFR CKD-EPI 41.2 (>60)
[2022-10-20] MEDS: cefTRIAXone 1 gm/50 mL D5W 1 GM/50 ML BAG IV SCH (09:00)
[2022-10-20] MEDS: Polyethylene Glycol 3350 17 GM PACKET PO SCH ×2 (09:14→21:20)
[2022-10-20 13:01] LABS: Albumin 2.4 g/dL (3.2-5.2); Direct Bilirubin 0.1 mg/dL (0.03-0.18); Indirect Bilirubin 0.3 mg/dL (0.3-1.0); Total Bilirubin 0.4 mg/dL (0.2-1.0)
[2022-10-20 13:07] LABS: Albumin/Globulin Ratio 0.8 (1-3); Globulin 3.1 g/dL (2-4); Total Protein 5.5 g/dL (6.4-8.9)
[2022-10-20] MEDS: Thiamine 100 MG/ML 2 ml VIAL 100 MG in NS 0.9% 50 ML 50 ML IV SCH (16:38)
[2022-10-20] MEDS: Enoxaparin 40 MG/0.4 ML SYR SUBCUT SCH (21:20)
[2022-10-21] MEDS: Lidocaine PATCH 5% PATCH TRANSDERM SCH ×2 (01:46→08:54)
[2022-10-21] MEDS: metroNIDAZOLE IV 500 MG/100ML 500 MG/100 ML BAG IVPB SCH ×2 (04:53→14:26)
[2022-10-21 06:00] LABS: Hematocrit 22.1 % (38-53); Hemoglobin 7.6 g/dL (13.2-16.3); Mean Corpuscular Hemoglobin 34.7 pg (27-33); Mean Corpuscular Hgb Conc 34.3 g/dL (31-36); Mean Corpuscular Volume 101.3 fL (80-97); Platelet Count 387 10^3/uL (150-450); Red Blood Count 2.18 10^6/uL (4.06-5.63); Red Cell Distribution Width 16.2 % (12-17); White Blood Count 17.6 10^3/uL (3.6-10.2)
[2022-10-21 06:16] LABS: ABS Basophils 0.1 10^3/uL (0.0-0.1); ABS Lymphocytes 0.6 10^3/uL (1.0-4.8); ABS Monocytes 1.9 10^3/uL (0.0-1.1); ABS Nucleated RBC 0.02 10^3/ul; Eosinophil % 0.1 %; Lymphocyte % 3.5 %; Nucleated Red Blood Cells % 0.1 /100 WBC (0.0-0.4)
[2022-10-21 06:23] LABS: Calcium 7.6 mg/dL (8.6-10.3); Creatinine, Serum 1.62 mg/dL (0.67-1.17); Magnesium 1.7 mg/dL (1.9-2.7); eGFR CKD-EPI 44.5 (>60)
[2022-10-21 06:27] LABS: Potassium 2.6 mmol/L (3.5-5.0)
[2022-10-21] MEDS ORDERED: Potassium Chlor 20 meq TAB.ER PO ONE (07:20)
[2022-10-21] MEDS ORDERED: Magnesium Sulfate IV 3 GM in NS 0.9% 100 ml BAG 100 ML IVPB ONE (07:20)
[2022-10-21] MEDS: Polyethylene Glycol 3350 17 GM PACKET PO SCH ×2 (08:11→22:21)
[2022-10-21] MEDS: cefTRIAXone 1 gm/50 mL D5W 1 GM/50 ML BAG IV SCH (11:22)
[2022-10-21] MEDS ORDERED: Piperacillin/Tazobac ADVAN 3.375 GM in NS 0.9% 100 ml BAG 100 ML IV ONE (14:51)
[2022-10-21] MEDS ORDERED: Zosyn per Pharmacy NOTE FOLLOW UP SCH ×2 (15:00)
[2022-10-21] MEDS: Thiamine 100 MG/ML 2 ml VIAL 100 MG in NS 0.9% 50 ML 50 ML IV SCH (15:53)
[2022-10-21] MEDS: ZOSYN 3.375 GM Q8H per EXTENDED INFUSION IV SCH (19:21)
[2022-10-21] MEDS: Enoxaparin 40 MG/0.4 ML SYR SUBCUT SCH (19:23)
[2022-10-22] MEDS: ZOSYN 3.375 GM Q8H per EXTENDED INFUSION IV SCH ×3 (04:57→21:37)
[2022-10-22 07:09] LABS: Hematocrit 22.4 % (38-53); Hemoglobin 7.7 g/dL (13.2-16.3); Mean Corpuscular Hemoglobin 35.1 pg (27-33); Mean Corpuscular Hgb Conc 34.5 g/dL (31-36); Mean Corpuscular Volume 101.9 fL (80-97); Mean Platelet Volume 7.5 fL (7.5-11.2); Platelet Count 419 10^3/uL (150-450); Red Cell Distribution Width 16.1 % (12-17); White Blood Count 19.3 10^3/uL (3.6-10.2)
[2022-10-22 07:10] LABS: C Reactive Protein 147.72 mg/L (<8.01)
[2022-10-22 07:33] LABS: ABS Basophils 0.1 10^3/uL (0.0-0.1); ABS Eosinophils 0.1 10^3/uL (0.0-0.5); ABS Lymphocytes 0.8 10^3/uL (1.0-4.8); ABS Monocytes 1.7 10^3/uL (0.0-1.1); ABS Neutrophils 16.7 10^3/uL (1.5-7.6); ABS Nucleated RBC 0.01 10^3/ul; Eosinophil % 0.5 %
[2022-10-22] MEDS: Polyethylene Glycol 3350 17 GM PACKET PO SCH ×2 (08:21→21:42)
[2022-10-22 08:55] LABS: Calcium 7.7 mg/dL (8.6-10.3); Magnesium 2.1 mg/dL (1.9-2.7)
[2022-10-22 08:59] LABS: Potassium 2.7 mmol/L (3.5-5.0)
[2022-10-22 09:01] LABS: Creatinine, Serum 1.52 mg/dL (0.67-1.17); eGFR CKD-EPI 48.1 (>60)
[2022-10-22] MEDS: Potassium Chlor 20 meq TAB.ER PO SCH ×2 (10:38→14:56)
[2022-10-22] MEDS: Lidocaine PATCH 5% PATCH TRANSDERM SCH (12:24)
[2022-10-22] MEDS: Thiamine 100 MG/ML 2 ml VIAL 100 MG in NS 0.9% 50 ML 50 ML IV SCH (14:57)
[2022-10-22 16:06] LABS: Calcium 7.7 mg/dL (8.6-10.3); Creatinine, Serum 1.52 mg/dL (0.67-1.17); Potassium 3.2 mmol/L (3.5-5.0); eGFR CKD-EPI 48.1 (>60)
[2022-10-22] MEDS ORDERED: Potassium EFFERVES 25 meq TAB PO ONE (18:30)
[2022-10-22] MEDS: Enoxaparin 40 MG/0.4 ML SYR SUBCUT SCH (21:37)
[2022-10-23] MEDS: ZOSYN 3.375 GM Q8H per EXTENDED INFUSION IV SCH ×3 (05:09→20:36)
[2022-10-23 06:47] LABS: Hematocrit 21.5 % (38-53); Hemoglobin 7.4 g/dL (13.2-16.3); Mean Corpuscular Hemoglobin 35.1 pg (27-33); Mean Corpuscular Hgb Conc 34.7 g/dL (31-36); Mean Corpuscular Volume 101.3 fL (80-97); Platelet Count 431 10^3/uL (150-450); Red Blood Count 2.12 10^6/uL (4.06-5.63); Red Cell Distribution Width 16.2 % (12-17); White Blood Count 17.6 10^3/uL (3.6-10.2)
[2022-10-23 07:07] LABS: Calcium 7.6 mg/dL (8.6-10.3); Creatinine, Serum 1.67 mg/dL (0.67-1.17); Potassium 2.8 mmol/L (3.5-5.0); eGFR CKD-EPI 42.9 (>60)
[2022-10-23 07:20] LABS: ABS Basophils 0.1 10^3/uL (0.0-0.1); ABS Eosinophils 0.3 10^3/uL (0.0-0.5); ABS Lymphocytes 1.5 10^3/uL (1.0-4.8); ABS Monocytes 1.6 10^3/uL (0.0-1.1); ABS Neutrophils 14.1 10^3/uL (1.5-7.6); ABS Nucleated RBC 0.01 10^3/ul; Eosinophil % 1.7 %; Lymphocyte % 8.5 %
[2022-10-23] MEDS ORDERED: Potassium EFFERVES 25 meq TAB PO ONE (07:45)
[2022-10-23] MEDS: Potassium Chlor 20 meq TAB.ER PO SCH ×2 (09:07→17:44)
[2022-10-23] MEDS: Polyethylene Glycol 3350 17 GM PACKET PO SCH (09:09)
[2022-10-23] MEDS: Lidocaine PATCH 5% PATCH TRANSDERM SCH (09:10)
[2022-10-23] MEDS: Thiamine 100 MG/ML 2 ml VIAL 100 MG in NS 0.9% 50 ML 50 ML IV SCH (15:49)
[2022-10-23 16:32] LABS: Calcium 8.3 mg/dL (8.6-10.3); Creatinine, Serum 1.53 mg/dL (0.67-1.17); Potassium 3.4 mmol/L (3.5-5.0); eGFR CKD-EPI 47.7 (>60)
[2022-10-23] MEDS ORDERED: Potassium Chlor 20 meq TAB.ER PO ONE (18:41)
[2022-10-24] MEDS: ZOSYN 3.375 GM Q8H per EXTENDED INFUSION IV SCH ×3 (04:34→21:28)
[2022-10-24 06:17] LABS: Hemoglobin 7.7 g/dL (13.2-16.3); Mean Corpuscular Hemoglobin 35.4 pg (27-33); Mean Corpuscular Hgb Conc 35.2 g/dL (31-36); Mean Corpuscular Volume 100.7 fL (80-97); Platelet Count 443 10^3/uL (150-450); Red Blood Count 2.18 10^6/uL (4.06-5.63); Red Cell Distribution Width 16.4 % (12-17); White Blood Count 15.7 10^3/uL (3.6-10.2)
[2022-10-24 06:42] LABS: Calcium 7.8 mg/dL (8.6-10.3); Creatinine, Serum 1.45 mg/dL (0.67-1.17); Magnesium 1.8 mg/dL (1.9-2.7); eGFR CKD-EPI 50.9 (>60)
[2022-10-24 07:00] LABS: ABS Basophils 0.1 10^3/uL (0.0-0.1); ABS Eosinophils 0.4 10^3/uL (0.0-0.5); ABS Lymphocytes 1.3 10^3/uL (1.0-4.8); ABS Monocytes 1.3 10^3/uL (0.0-1.1); ABS Neutrophils 12.6 10^3/uL (1.5-7.6); ABS Nucleated RBC 0.01 10^3/ul; Eosinophil % 2.6 %; Lymphocyte % 8.5 %
[2022-10-24] MEDS ORDERED: Magnesium Sulfate 2 gm BAG 2 GM/50 ML BAG IVPB ONE (07:24)
[2022-10-24 08:40] LABS: C Reactive Protein 61.05 mg/L (<8.01)
[2022-10-24] MEDS ORDERED: Lactated Ringers 1000 ml BAG 1,000 ML IV ONE (09:10)
[2022-10-24] MEDS: Lidocaine PATCH 5% PATCH TRANSDERM SCH (09:15)
[2022-10-24] MEDS: Thiamine 100 MG/ML 2 ml VIAL 100 MG in NS 0.9% 50 ML 50 ML IV SCH (14:21)
[2022-10-24] MEDS ORDERED: methylPREDNISolone SOD SUCC 40 mg/ml 1 ml VIAL IV ONE (15:00)
[2022-10-24 16:27] LABS: Body Fluid Appearance Bloody; Body Fluid Color Pink; Body Fluid Mono 4 %; Body Fluid Source Synovial Fluid; Body Fluid Total Cells Counted 200
[2022-10-24 16:32] LABS: Uric Acid 5.3 mg/dL (4.4-7.6)
[2022-10-24] MEDS: Enoxaparin 40 MG/0.4 ML SYR SUBCUT SCH (17:45)
[2022-10-25] MEDS: hydrALAZINE 20 mg/ml 1 ML Vial IV IV SLOW PU PRN (03:18)
[2022-10-25] MEDS: ZOSYN 3.375 GM Q8H per EXTENDED INFUSION IV SCH ×3 (04:32→21:22)
[2022-10-25 05:49] LABS: Hematocrit 24.4 % (38-53); Hemoglobin 8.4 g/dL (13.2-16.3); Mean Corpuscular Hemoglobin 35.3 pg (27-33); Mean Corpuscular Hgb Conc 34.6 g/dL (31-36); Mean Platelet Volume 7.1 fL (7.5-11.2); Platelet Count 468 10^3/uL (150-450); Red Blood Count 2.39 10^6/uL (4.06-5.63); Red Cell Distribution Width 16.6 % (12-17)
[2022-10-25 05:53] LABS: INR 1.28 (0.88-1.18)
[2022-10-25 06:05] LABS: Creatinine, Serum 1.28 mg/dL (0.67-1.17); Potassium 3.8 mmol/L (3.5-5.0); eGFR CKD-EPI 59.1 (>60)
[2022-10-25 07:15] LABS: ABS Lymphocytes 0.9 10^3/uL (1.0-4.8); ABS Monocytes 0.2 10^3/uL (0.0-1.1); ABS Neutrophils 11.8 10^3/uL (1.5-7.6); Lymphocyte % 7.1 %
[2022-10-25] MEDS: Lidocaine PATCH 5% PATCH TRANSDERM SCH (09:48)
[2022-10-25] MEDS: Thiamine 100 MG/ML 2 ml VIAL 100 MG in NS 0.9% 50 ML 50 ML IV SCH (17:59)
[2022-10-25] MEDS: Enoxaparin 40 MG/0.4 ML SYR SUBCUT SCH (18:18)
[2022-10-26] MEDS: ZOSYN 3.375 GM Q8H per EXTENDED INFUSION IV SCH (04:38)
[2022-10-26 06:33] LABS: Hematocrit 21.3 % (38-53); Hemoglobin 7.3 g/dL (13.2-16.3); Mean Corpuscular Hemoglobin 34.7 pg (27-33); Mean Corpuscular Hgb Conc 34.1 g/dL (31-36); Platelet Count 460 10^3/uL (150-450); Red Blood Count 2.09 10^6/uL (4.06-5.63); Red Cell Distribution Width 16.4 % (12-17); White Blood Count 16.3 10^3/uL (3.6-10.2)
[2022-10-26 06:53] LABS: Calcium 7.6 mg/dL (8.6-10.3); Creatinine, Serum 1.34 mg/dL (0.67-1.17); Magnesium 1.7 mg/dL (1.9-2.7); Potassium 3.3 mmol/L (3.5-5.0); eGFR CKD-EPI 55.9 (>60)
[2022-10-26 07:11] LABS: ABS Basophils 0.1 10^3/uL (0.0-0.1); ABS Lymphocytes 1.3 10^3/uL (1.0-4.8); ABS Monocytes 0.9 10^3/uL (0.0-1.1); ABS Nucleated RBC 0.01 10^3/ul; Lymphocyte % 8.1 %; Nucleated Red Blood Cells % 0.1 /100 WBC (0.0-0.4)
[2022-10-26] MEDS ORDERED: Potassium EFFERVES 25 meq TAB PO ONE (07:29)
[2022-10-26] MEDS ORDERED: Magnesium Sulfate 2 gm BAG 2 GM/50 ML BAG IVPB ONE (07:30)
[2022-10-26] MEDS: Lidocaine PATCH 5% PATCH TRANSDERM SCH (08:11)
[2022-10-26] MEDS ORDERED: Dextran 70/Hypromellose Tears Eye Drops 15 ml BTL (for Artificials Tears) BOTH EYES PRN (09:27)
[2022-10-26] MEDS: hydrALAZINE 20 mg/ml 1 ML Vial IV IV SLOW PU PRN (10:17)
[2022-10-26 13:44] LABS: Rapid COVID-19 Molecular Undetected (Undetected)
[2022-10-26 14:39] VITALS: BP 139/64
== END 2022-10-26 14:30 | DRG 480 ==
LOC: ED 21:32 → EDHOLD 23:55 → SUATTDRO 23:55 → MEDTELE 10-06 05:28 → MED 10-07 06:35 → SSU 10-07 19:30 → ICU 10-10 13:19 → SSU 10-14 19:48 → MED 10-19 17:43
PROVIDERS: ADMIT Hospitalist; ATTEND Family Medicine